=== PATIENT | female | born 1940 | race Caucasian/White ===

== ENCOUNTER 2017-01-16 21:43 | Inpatient (IN) | payer OTHER ==
[~2017-01-16] VITALS: Ht 162.6 cm; Wt 86.1 kg
[~2017-01-16 21:43] MED LIST: AMLODIPINE BES2.5 MG PO; ASPIRIN81 M1 PO; CALCIUM 600 +1 EAC3 PO; FLUOXETINE HCL20 MG PO; LISINOPRIL-HCT1 EACH PO; METOPROLOL SUCC50 MG PO; MULTIVITAMIN1 EAC2 PO; NASONEX17 GM BOTH NARES; NEILMED SINUS1 EACH NS; PRAVASTATIN SOD40 MG PO
[2017-01-17 08:04] VITALS: BP 113/67
[2017-01-17 13:43] VITALS: BP 133/80
[2017-01-17 16:15] VITALS: BP 144/87
[2017-01-17] MEDS ORDERED: LORTAB 5-325 M1 EACH PO (16:38)
[2017-01-17] MEDS ORDERED: ZANAFLEX4 M1 PO (16:38)
[2017-01-17] MEDS ORDERED: ZOFRAN4 MG PO (16:39)
== END 2017-01-17 18:32 | disposition home or self-care (01) | DRG 520 ==
LOC: CANRESERV 21:43 → ENRESERV 21:43 → 2SOUTH 01-17 07:28 → ENRESERV 01-17 11:43 → 2SOUTH 01-17 11:56 → 3EAST 01-17 12:23 → 2SOUTH 01-17 15:28 → 3EAST 01-17 18:32
DX: M48.061 Spinal stenosis, lumbar region without neurogenic claudication (principal); E66.01 Morbid (severe) obesity due to excess calories; M54.16 Radiculopathy, lumbar region; M46.90 Unspecified inflammatory spondylopathy, site unspecified; M47.9 Spondylosis, unspecified; I10 Essential (primary) hypertension; F17.200 Nicotine dependence, unspecified, uncomplicated; G47.33 Obstructive sleep apnea (adult) (pediatric); I25.10 Atherosclerotic heart disease of native coronary artery without angina pectoris; R73.9 Hyperglycemia, unspecified; F41.9 Anxiety disorder, unspecified; M20.42 Other hammer toe(s) (acquired), left foot; B35.3 Tinea pedis; S93.125D Dislocation of metatarsophalangeal joint of left lesser toe(s), subsequent encounter; Z90.710 Acquired absence of both cervix and uterus; Z85.828 Personal history of other malignant neoplasm of skin; Z80.8 Family history of malignant neoplasm of other organs or systems
CPT/HCPCS: 72020; 76000; J0131; J0690; J2250; J2405; J2710; J2930; J3010; J3480; J7120; S0020